=== PATIENT | male | born 1965 | race Two or more races ===

== ENCOUNTER 2017-11-14 09:22 | Outpatient (CLI) | payer OTHER ==
[~2017-11-14 09:22] MED LIST: AMBIEN10 MG PO; CIPRO750 MG PO; Colace 100MG PO; DICY10CA PO; IBUPROFEN800 MG PO; LIDODERM30 EA TP; MEDROL4 MG PO; NEURONTIN PO; NORFLEX100MG PO; PERCOCET 5/3251 TAB PO
== END 2017-11-14 09:33 | disposition home or self-care (01) ==
LOC: RAD 501 09:22
DX: R06.02 Shortness of breath (principal)

== ENCOUNTER 2018-01-12 08:32 | Emergency (ER) | payer OTHER ==
[~2018-01-12] VITALS: Ht 185.4 cm; Wt 104.3 kg
== END 2018-01-12 11:51 | disposition home or self-care (01) ==
LOC: ER 08:32
DX: M70.51 Other bursitis of knee, right knee (principal)

== ENCOUNTER 2018-02-03 09:42 | Outpatient (CLI) | payer OTHER | END 2018-02-03 09:52 | disposition home or self-care (01) | LOC: RAD 501 09:42 | DX: M54.5 Low back pain (principal) ==

== ENCOUNTER 2018-02-11 07:12 | Outpatient (CLI) | payer OTHER | END 2018-02-11 07:40 | disposition home or self-care (01) | LOC: SONOGRAMA 07:12 → MAMO-SONO 08:15 | DX: S83.92XA Sprain of unspecified site of left knee, initial encounter (principal); S83.91XA Sprain of unspecified site of right knee, initial encounter ==

== ENCOUNTER 2019-02-03 07:23 | Outpatient (CLI) | payer OTHER | END 2019-02-03 07:31 | disposition home or self-care (01) | LOC: RAD 07:23 | DX: M99.01 Segmental and somatic dysfunction of cervical region (principal); M79.672 Pain in left foot ==

== ENCOUNTER 2019-08-13 09:51 | Outpatient (CLI) | payer OTHER | END 2019-08-13 09:54 | disposition home or self-care (01) | LOC: RAD 09:51 | DX: E78.89 Other lipoprotein metabolism disorders (principal); Z96.651 Presence of right artificial knee joint ==

== ENCOUNTER 2021-02-10 15:59 | Outpatient (CLI) | payer OTHER | END 2021-02-10 16:08 | disposition home or self-care (01) | LOC: RAD 15:59 | PROVIDERS: ATTEND Internal Medicine Pulmonary Disease | DX: J45.31 Mild persistent asthma with (acute) exacerbation (principal); J30.1 Allergic rhinitis due to pollen ==

== ENCOUNTER → 2021-05-16 | Outpatient (CLI) | payer OTHER | END | disposition home or self-care (01) | LOC: SONOGRAMA 10:44 | PROVIDERS: ATTEND Physical Medicine & Rehabilitation | DX: M25.522 Pain in left elbow (principal) ==

== ENCOUNTER → 2021-09-05 | Outpatient (CLI) | payer OTHER | END | disposition home or self-care (01) | LOC: MRI 08:21 | PROVIDERS: ATTEND Obstetrics & Gynecology | DX: Z98.1 Arthrodesis status (principal) | CPT/HCPCS: 72158 ==

== ENCOUNTER 2021-10-30 16:08 | Emergency (ER) | payer OTHER ==
[~2021-10-30] VITALS: Ht 180.3 cm; Wt 86.2 kg
[2021-10-30] MEDS ORDERED: MEDROLPACK PO (19:51)
[2021-10-30] MEDS ORDERED: CLARITIN10 M1 PO (19:51)
[2021-10-30] MEDS ORDERED: TUSNEL LIQUID178 ML PO (19:51)
[2021-10-30] MEDS ORDERED: DOLOGEN CAPLET1 EACH PO (19:51)
== END 2021-10-30 20:27 | disposition home or self-care (01) ==
LOC: ER 16:08
DX: U07.1 COVID-19 (principal)

== ENCOUNTER 2021-11-01 08:05 | Outpatient (CLI) | payer OTHER ==
[~2021-11-01 08:05] MED LIST changes: +CLARITIN10 M1 PO; +DOLOGEN CAPLET1 EACH PO; +MEDROLPACK PO; +TUSNEL LIQUID178 ML PO
[2021-11-02] MEDS ORDERED: ORPHENADRINE C100 MG PO (19:34)
[2021-11-02] MEDS ORDERED: NAPR500T14 PO (19:34)
== END 2021-11-01 08:50 | disposition home or self-care (01) ==
LOC: ASH CLINIC 08:05
PROVIDERS: ATTEND General Practice
DX: U07.1 COVID-19 (principal)

== ENCOUNTER 2021-11-02 16:03 | Emergency (ER) | payer OTHER ==
[~2021-11-02] VITALS: Ht 182.9 cm; Wt 97.5 kg
[2021-11-02] MEDS ORDERED: NAPR500T14 PO (19:34)
[2021-11-02] MEDS ORDERED: ORPHENADRINE C100 MG PO (19:34)
== END 2021-11-02 20:42 | disposition home or self-care (01) ==
LOC: ER 16:03
DX: M53.86 Other specified dorsopathies, lumbar region (principal); M62.830 Muscle spasm of back; M54.30 Sciatica, unspecified side

== ENCOUNTER 2022-07-26 11:55 | Outpatient (CLI) | payer OTHER ==
[~2022-07-26 11:55] MED LIST changes: +NAPR500T14 PO; +ORPHENADRINE C100 MG PO
== END 2022-07-26 12:03 | disposition home or self-care (01) ==
LOC: RAD 11:55
PROVIDERS: ATTEND Internal Medicine
DX: J45.901 Unspecified asthma with (acute) exacerbation (principal); J45.20 Mild intermittent asthma, uncomplicated; Z96.651 Presence of right artificial knee joint; E78.9 Disorder of lipoprotein metabolism, unspecified

== ENCOUNTER 2022-10-23 08:03 | Outpatient (CLI) | payer OTHER | END 2022-10-23 08:16 | disposition home or self-care (01) | LOC: RAD 08:03 | DX: M99.01 Segmental and somatic dysfunction of cervical region (principal); M99.02 Segmental and somatic dysfunction of thoracic region; M99.03 Segmental and somatic dysfunction of lumbar region; M99.05 Segmental and somatic dysfunction of pelvic region ==

== ENCOUNTER 2023-03-05 08:57 | Outpatient (CLI) | payer OTHER | END 2023-03-05 09:08 | disposition home or self-care (01) | LOC: RAD 08:57 | PROVIDERS: ATTEND Physical Medicine & Rehabilitation | DX: M25.562 Pain in left knee (principal) ==

== ENCOUNTER 2023-09-17 08:29 | Outpatient (CLI) | payer OTHER | END 2023-09-17 08:44 | disposition home or self-care (01) | LOC: RAD 08:29 | PROVIDERS: ATTEND Internal Medicine Pulmonary Disease | DX: J30.1 Allergic rhinitis due to pollen (principal); J45.20 Mild intermittent asthma, uncomplicated; G47.33 Obstructive sleep apnea (adult) (pediatric); E66.01 Morbid (severe) obesity due to excess calories; R06.02 Shortness of breath ==

== ENCOUNTER 2023-09-27 08:08 | Outpatient (CLI) | payer OTHER | END 2023-09-27 08:18 | disposition home or self-care (01) | LOC: TOM 08:08 | PROVIDERS: ATTEND Internal Medicine Pulmonary Disease | DX: J45.20 Mild intermittent asthma, uncomplicated (principal); G47.33 Obstructive sleep apnea (adult) (pediatric); R91.1 Solitary pulmonary nodule; E66.01 Morbid (severe) obesity due to excess calories; R06.02 Shortness of breath ==

== ENCOUNTER 2025-05-03 08:19 | Outpatient (CLI) | payer OTHER | END 2025-05-03 08:20 | disposition home or self-care (01) | LOC: TOM 08:19 | DX: N20.0 Calculus of kidney (principal); N20.1 Calculus of ureter; R31.9 Hematuria, unspecified ==